=== PATIENT | female | born 1985 | race Caucasian/White ===

== ENCOUNTER 2017-12-27 07:08 | Day surgery (SDC) | payer OTHER ==
[~2017-12-27] VITALS: Ht 170.2 cm; Wt 70.1 kg
[2017-12-27] MEDS ORDERED: LACTATED RINGERS 1,000 ML IV SCH (08:10)
[2017-12-27] MEDS ORDERED: MULT-508 PO (08:14)
[2017-12-27] MEDS ORDERED: PROG100C2 PO (08:14)
[2017-12-27 08:15] VITALS: BP 108/70
[2017-12-27 08:16] LABS: MICROSCOPIC NOT IND
[2017-12-27 08:18] LABS: CULTURE INDICATED? NO
[2017-12-27] MEDS ORDERED: EPINEPHRINE 1 MG/ML, 1ML ONE (08:44)
[2017-12-27] MEDS ORDERED: BUPIVACAINE/PF 0.25% ONE ×2 (08:44→08:50)
[2017-12-27] MEDS ORDERED: SILVER NITRATE STICK TP ONE ×2 (08:50→11:09)
[2017-12-27] MEDS ORDERED: FENTANYL PF 250 MCG/5ML ONE (09:01)
[2017-12-27] MEDS ORDERED: MIDAZOLAM 1 MG/ML, 2ML ONE (09:01)
[2017-12-27] MEDS ORDERED: PROPOFOL 10 MG/ML, 20ML ONE (09:02)
[2017-12-27] MEDS ORDERED: CEFAZOLIN 1,000 MG ONE (09:02)
[2017-12-27] MEDS ORDERED: GLYCOPYRROLATE 0.2MG/1ML, 5ML ONE ×2 (09:02→10:29)
[2017-12-27] MEDS ORDERED: ONDANSETRON 2MG/ML, 2ML ONE (09:02)
[2017-12-27] MEDS ORDERED: SUCCINYLCHOLINE 20 MG/ML, 10ML ONE ×2 (09:02→09:03)
[2017-12-27] MEDS ORDERED: NEOSTIGMINE 1 MG/ML, 10ML ONE ×2 (09:02→10:29)
[2017-12-27] MEDS ORDERED: ROCURONIUM 10 MG/ML,10ML ONE (09:02)
[2017-12-27] MEDS ORDERED: DEXAMETHASONE 4 MG/ML, 1ML ONE (09:02)
[2017-12-27 09:17] LABS: HCG UR SG 1.021 (1.003-1.030)
[2017-12-27 09:39] LABS: BASOPHILS # (AUTO) 0.03 x10^3/uL (0-0.1); BASOPHILS % (AUTO) 0 % (0-1); EOSINOPHILS # (AUTO) 0.06 x10^3/uL (0-0.4); EOSINOPHILS % (AUTO) 1 % (1-7); LYMPHOCYTES # (AUTO) 1.69 x10^3/uL (1-3.4); LYMPHOCYTES % (AUTO) 23 % (22-44); MD NO; MEAN CORPUSCULAR HEMOGLOBIN 32.7 pg (27.0-34.8); MEAN CORPUSCULAR HGB CONC 33.9 g/dL (32.4-35.8); MEAN CORPUSCULAR VOLUME 96.6 fL (80-100); MEAN PLATELET VOLUME 8.7 fL (7.4-10.4); MONOCYTES # (AUTO) 0.39 x10^3/uL (0.2-0.8); MONOCYTES % (AUTO) 5 % (2-9); NEUTROPHILS # (AUTO) 5.18 x10^3/uL (1.8-6.8); NEUTROPHILS % (AUTO) 71 % (42-75); PLATELET COUNT 207 x10^3/uL (130-400); RED BLOOD COUNT 4.38 x10^6/uL (3.82-5.3); RED CELL DISTRIBUTION WIDTH 12.5 % (9.6-15.2)
[2017-12-27] MEDS ORDERED: PROMETHAZINE 25 MG/ML, 1ML IV PRN (10:30)
[2017-12-27] MEDS ORDERED: METOCLOPRAMIDE 5 MG/ML, 2ML IV PRN (10:30)
[2017-12-27] MEDS ORDERED: MIDAZOLAM 1 MG/ML, 2ML IV PRN (10:30)
[2017-12-27] MEDS ORDERED: EPHEDRINE 50 MG/ML, 1ML IVPush PRN (10:30)
[2017-12-27] MEDS ORDERED: KETOROLAC 30 MG/1 ML IM PRN (10:30)
[2017-12-27] MEDS ORDERED: ALBUTEROL SULFATE 2.5 MG/3 ML NPPB PRN (10:30)
[2017-12-27] MEDS ORDERED: LABETALOL 5MG/ML, 20ML IV PRN (10:30)
[2017-12-27] MEDS ORDERED: MEPERIDINE/PF 25MG/0.5ML IVPush PRN (10:30)
[2017-12-27] MEDS ORDERED: ONDANSETRON 2MG/ML, 2ML IVPush PRN (10:30)
[2017-12-27] MEDS: FENTANYL PF 100 MCG/2ML IV PRN ×2 (11:10→11:22)
[2017-12-27] MEDS ORDERED: ACETAMINOPHEN 650 MG/20.3 ML UDC ONE (11:12)
[2017-12-27] MEDS ORDERED: OXYcodone 5 MG/5 ML ORAL.SOL UDC ONE (11:12)
[2017-12-27] MEDS ORDERED: ACETAMINOPHEN 325 MG TABLET ONE (11:12)
[2017-12-27] MEDS ORDERED: FENTANYL PF 100 MCG/2ML ONE (11:12)
[2017-12-27] MEDS ORDERED: OXYcodone 5 MG/5 ML ORAL.SOL UDC PO PRN (11:30)
[2017-12-27] MEDS ORDERED: ACETAMINOPHEN 325 MG TABLET PO PRN (11:30)
[2017-12-27] MEDS ORDERED: HYDROmorphone 2 MG/ML, 1ML ONE (11:53)
[2017-12-27] MEDS: HYDROmorphone 1 MG/ML, 1ML IV PRN ×2 (11:56→12:13)
[2017-12-27] MEDS ORDERED: IBUPROFEN 600 MG TABLET ONE (12:54)
[2017-12-27] MEDS ORDERED: IBUPROFEN 200 MG TABLET PO ONE (13:00)
== END 2017-12-27 13:25 ==
LOC: OUT 07:08
PROVIDERS: ATTEND Obstetrics & Gynecology
DX: N93.9 Abnormal uterine and vaginal bleeding, unspecified (principal); N83.201 Unspecified ovarian cyst, right side; Z30.2 Encounter for sterilization
CPT/HCPCS: 36415; 58563; 58670; 81003; 81025; 85025; 88302; J0171; J0330; J0690; J1100; J1170; J2250; J2405; J2704; J2710; J3010; J3490; J7120